=== PATIENT | female | born 1995 | race Caucasian/White ===

== ENCOUNTER 2018-11-15 13:01 | Emergency (ER) | payer OTHER ==
[2018-11-15 13:42] LABS: Bilirubin Negative (Negative); Blood, Urine Large (Negative); Glucose, Urine (Dipstick) Negative (Negative); Leukocyte Negative (Negative); Nitrite Negative (Negative); Protein, Urine (Dipstick) Trace mg/dL (Neg-Trace); Urobilinogen 0.2 mg/dL (0.2-1.0); pH, Urine 5.5 (5.0-9.0)
[2018-11-15 13:43] LABS: Clarity Hazy (Clear)
[2018-11-15 13:46] LABS: #Basophils 0.1 thou/uL (0.0-0.2); #Lymphocytes 1.6 thou/uL (1.20-3.40); #Monocytes 0.3 thou/uL (0.11-0.59); #Neutrophils 3.1 thou/uL (1.40-6.50); %Basophils 1.4 % (0.0-1.0); %Eosinophils 0.9 % (0.0-10.0); %Lymphocytes 30.8 % (21.0-51.0); %Monocytes 6.1 % (0.0-10.0); %Neutrophils 60.7 % (42.0-75.0); Hemoglobin 13.6 g/dL (12.0-16.0); Mean Corpuscular HGB CONC 31.8 g/dL (32.0-36.0); Mean Corpuscular Hemoglobin 26.7 pg (27.0-31.0); Mean Corpuscular Volume 84.2 fL (78.0-98.0); Mean Platelet Volume 9.4 fL (7.4-10.4); Platelet Count 245 thou/uL (130-400); RBC Distribution Width 12.4 % (11.5-14.5); Red Blood Cell (RBC) Count 5.08 mill/uL (4.20-5.40); White Blood Cell (WBC) Count 5.1 thou/uL (4.8-10.8)
[2018-11-15 13:47] LABS: Bacteria/HPF 1+ HPF (None Seen); WBC/HPF None Seen HPF (0-3)
[2018-11-15 13:57] LABS: ALT (SGPT) 16 U/L (8-55); AST (SGOT) 15 U/L (5-34); Albumin 4.5 g/dL (3.5-5.0); Alkaline Phosphatase 50 U/L (40-150); Anion Gap 12 mmol/L (10-20); BUN (Urea Nitrogen) 6 mg/dL (7.0-18.7); Bilirubin, Total 0.6 mg/dL (0.2-1.2); Calc. Creatinine Clearance 0 mL/min (70-130); Calcium 9.4 mg/dL (7.8-10.44); Carbon Dioxide 25 mmol/L (22-29); Chloride 106 mmol/L (98-107); Estimated GFR-MDRD Greater than 90; Globulin 2.9 g/dL (2.4-3.5); Glucose 101 mg/dL (70-105); Potassium 3.6 mmol/L (3.5-5.1); Protein, Total 7.4 g/dL (6.0-8.3); Sodium 139 mmol/L (136-145)
--- NOTE | 2018-11-15 14:45 | ULT ---
EXAM: US Pelvic Transvag W Doppler PROVIDED CLINICAL HISTORY: Vaginal bleeding. COMPARISON: None FINDINGS: Multiple transabdominal and endovaginal sonographic images of the pelvis are obtained. The uterus demonstrates a normal sonographic appearance measuring 6.4 cm x 3.3 cm x 4.6 cm. The endom etrial stripe measures 0.5 cm in thickness which is within normal limits for the patient's age. No fluid or fluid collection is seen in the endometrial canal. The ovaries demonstrate normal sonographic appearance bilaterally. The right ovary measures 2.4 cm x 2.8 cm x 2.4 cm and the left ovary measures 1.5 cm x 3.6 cm x 1.7 cm. Doppler evaluation of each ovary with spectral analysis and color flow evaluation demonstrates arteri al flow in each ovary. No free fluid is seen in the cul-de-sac. IMPRESSION: Normal-appearing uterus and bilateral ovaries. No fluid collection is seen in the endometrial canal t o suggest an intrauterine gestation. Correlation with quantitative beta hCG level is recommended if there is concern for . Ectopic patency cannot be excluded based on sonographic evaluation.
== END 2018-11-15 14:57 | disposition home or self-care (01) ==
LOC: SCSER 13:01
DX: O03.9 Complete or unspecified spontaneous abortion without complication (principal); D64.9 Anemia, unspecified
CPT/HCPCS: 36415; 76856; 80053; 81003; 81015; 84702; 85025

== ENCOUNTER 2024-06-29 21:49 | Emergency (ER) | payer SELFPAY ==
[2024-06-29 22:21] LABS: #Basophils 0.06 10x3/uL (0.0-0.2); %Basophils 0.6 % (0.0-1.0); %Eosinophils 1.1 % (0.0-10.0); %Lymphocytes 33.4 % (21.0-51.0); %Monocytes 7.1 % (0.0-10.0); %Neutrophils 57.3 % (42.0-75.0); Hematocrit 41.3 % (36.0-47.0); Hemoglobin 13.5 g/dL (12.0-16.0); Mean Corpuscular HGB CONC 32.7 g/dL (32.0-36.0); Mean Corpuscular Hemoglobin 26.8 pg (27.0-31.0); Mean Corpuscular Volume 82.1 fL (78.0-98.0); Mean Platelet Volume 10.8 fL (7.4-10.4); Platelet Count 370 10x3/uL (130-400); RBC Distribution Width 13.3 % (11.5-14.5); Red Blood Cell (RBC) Count 5.03 mill/uL (4.20-5.40)
[2024-06-29 22:40] LABS: BHCG - Serum Negative (NEGATIVE); Pregs Control Background? CLEAR/WHITE (CLR/WHITE); Pregs Control Bar Appear? YES (CONTROL BAR)
[2024-06-29 22:47] LABS: Bacteria/HPF None Seen HPF (None Seen); Bilirubin Negative (Negative); Blood, Urine Negative (Negative); CAUTI Indications for Culture Alt mental st,lethar; Clarity Clear (Clear); Glucose, Urine (Dipstick) Normal (Negative); Ketone, Urine Negative (Negative); Leukocyte Negative Leu/uL (Negative); Nitrite Negative (Negative); Protein, Urine (Dipstick) Negative (Neg-Trace); RBC/HPF 0-3 HPF (0-3); Specific Gravity, Urine 1.014 (1.002-1.036); Squamous Epithelial 0-3 HPF (0-3); WBC/HPF 0-3 HPF (0-3)
[2024-06-29 22:51] LABS: Urine Culture Reflex No No
[2024-06-29 22:57] LABS: ALT (SGPT) 16 U/L (8-55); AST (SGOT) 18 U/L (5-34); Albumin 4.3 g/dL (3.5-5.0); Alkaline Phosphatase 51 U/L (40-110); Anion Gap 15 mmol/L (10-20); BUN (Urea Nitrogen) 5 mg/dL (7.0-18.7); Bilirubin, Total 0.6 mg/dL (0.2-1.2); Calc. Creatinine Clearance 0 mL/min (70-130); Calcium 9.1 mg/dL (7.8-10.44); Carbon Dioxide 22 mmol/L (22-29); Chloride 105 mmol/L (98-107); Estimated GFR 106; Globulin 3.6 g/dL (2.4-3.5); Glucose 95 mg/dL (70-105); Potassium 3.8 mmol/L (3.5-5.1); Protein, Total 7.9 g/dL (6.0-8.3); Sodium 138 mmol/L (136-145)
== END 2024-06-30 00:18 | disposition home or self-care (01) ==
LOC: ERS 21:49
DX: R10.2 Pelvic and perineal pain (principal)
CPT/HCPCS: 36415; 76856; 80053; 81001; 84703; 85025